=== PATIENT | male | born 2000 | race Caucasian/White ===

== ENCOUNTER 2024-12-28 19:23 | Emergency (ER) | payer SELFPAY ==
[2024-12-28] MEDS: Ketorolac 60 MG/2 ML SDV IM ONE (20:09)
== END 2024-12-28 22:43 | disposition home or self-care (01) ==
LOC: JD.ED 19:23
DX: S63.295A Dislocation of distal interphalangeal joint of left ring finger, initial encounter (principal); W23.0XXA Caught, crushed, jammed, or pinched between moving objects, initial encounter; X50.1XXA Overexertion from prolonged static or awkward postures, initial encounter
CPT/HCPCS: 12001; 26770; 73140; 96372; 99283; J1885

== ENCOUNTER 2025-01-08 14:54 | Emergency (ER) | payer SELFPAY | END 2025-01-08 15:35 | disposition home or self-care (01) | LOC: JD.ED 14:54 | DX: S61.215D Laceration without foreign body of left ring finger without damage to nail, subsequent encounter (principal); X58.XXXD Exposure to other specified factors, subsequent encounter | CPT/HCPCS: 99281 ==